=== PATIENT | male | born 1990 | race Caucasian/White ===

== ENCOUNTER 2022-01-22 09:09 | Inpatient (IN) | payer OTHER ==
[~2022-01-22] VITALS: Ht 172.7 cm; Wt 85.7 kg
[2022-01-22 12:23] LABS: BASOPHILS ABSOLUTE AUTO 0.05 K/mm3 (0.00-0.23); BASOPHILS PERCENT AUTO 0 % (0-2); EOSINOPHILS PERCENT AUTO 0 % (0-6); Hematocrit 46.9 % (37.0-53.0); Hemoglobin 16.6 g/dL (13.5-17.5); IMMATURE GRAN PERCENT AUTO 1 % (0-1); LYMPHOCYTES ABSOLUTE AUTO 1.16 K/mm3 (0.84-5.20); LYMPHOCYTES PERCENT AUTO 6 % (21-46); MONOCYTES ABSOLUTE AUTO 1.32 K/mm3 (0.16-1.47); MONOCYTES PERCENT AUTO 7 % (4-13); Mean Corpuscular HGB 30.2 pg (26.0-34.0); Mean Corpuscular HGB Conc 35.4 g/dL (31.5-36.5); Mean Corpuscular Volume 85 fL (80-100); Mean Platelet Volume 10.6 fL (9.1-12.4); NEUTROPHILS ABSOLUTE AUTO 17.59 K/mm3 (1.96-9.15); NEUTROPHILS PERCENT AUTO 87 % (41-73); Platelet Count 312 K/mm3 (150-400); RDW Coefficient Variation 11.9 % (11.7-14.2); RDW Standard Deviation 36.9 fL (35.1-46.3); Red Blood Cell Count 5.49 M/mm3 (4.30-5.90); White Blood Cell Count 20.22 K/mm3 (4.00-11.30)
[2022-01-22 12:39] LABS: Albumin, Blood 4.9 g/dL (3.4-5.0); Albumin/Globulin Ratio 1.3 (0.8-1.8); Bun/Creatinine Ratio 22.9 (12.0-20.0); Calcium, Blood 9.5 mg/dL (8.5-10.1); Creatinine, Blood 1.75 mg/dL (0.60-1.20); Globulin, Blood 3.8 g/dL (2.2-4.0); Potassium, Blood 4.5 mmol/L (3.5-5.5); Total Protein, Blood 8.7 g/dL (6.4-8.2)
[2022-01-22] MEDS ORDERED: LAMO25 PO (13:23)
[2022-01-22] MEDS ORDERED: PROP10 PO (13:24)
[2022-01-22 13:29] LABS: U Amphetamine Screen DETECTED; U Barbituate Screen Not Detected; U Benzodiazapine Screen Not Detected; U Buprenorphine Screen Not Detected; U Cannabinoids Screen Not Detected; U Cocaine Screen Not Detected; U Methadone Screen Not Detected; U Methamphetamine Screen DETECTED; U Opiates Screen Not Detected; U Oxycodone Screen Not Detected; U Phencyclidine Screen Not Detected; U Propoxyphene Screen Not Detected
--- NOTE | 2022-01-22 14:22 | NUR ---
PT TO ROOM 219 FROM ED. PT COVERED IN BLOOD WITH ACTIVELY BLEEDING DRESSING. THIS RN TRIED TO CHANGE DRESSING IN ORDER TO STOP BLEEEDING. PT BECAME VERY AGITATED AND RAN OUT OF THE ROOM. PT LEFT AMA. IV LEFT IN PATIENT.
--- NOTE | 2022-01-22 14:43 | NUR ---
PT BACK IN ROOM AT THIS TIME. EXPRESSED HE DID NOT UNDERSTAND WHAT WAS HAPPENING AND DID NOT WANT TO GO AMA. NURSING MOUNTING MACHINE OPERATOR NOTIFIED AND WILL GO OVER [employer]ERO TOLERANCE POLICY WITH PATIENT. WILL HAVE TO CALL IN CONSULTS AGAIN.
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
--- NOTE | 2022-01-23 05:29 | NUR ---
SEWING MACHINE ATTACHMENT TESTER SUMMARY PT AAOX3 AND HAS BEEN CALM AND COOPERATIVE THROUGH THE NIGHT. PT REPORTS USING METH REGULARLY AND DOES DISPLAY SOME FLIGHT OF IDEAS AND HAS TO BE REMINDED SEVERAL TIMES TO NOT SHUT OFF OR UNHOOK HIS IV FLUIDS. NPO SINCE MIDNIGHT ASIDE FROM PAIN PILL X1 AROUND 0500. PT DOES NOT TAKE PRECAUTIONS WITH HIS L ARM WHICH HAS CAUSED SOME BLEEDING FROM HIS OPEN WOUND ON THE ELBOW. DRESSING CHANGED THIS AM WITH ABD PAD WITH KERLEX AND HARPER WRAP. PT REPORTS SOME NUMBNESS TO HIS HAND BUT STATES THIS IS UNCHANGED SINCE SUSTAINING THE INJURY. ENCOURAGED PT TO BE MORE CAUTIOUS WITH HIS L ARM TO DECREASE DRAINAGE FROM WOUND. PT TO HAVE SURGERY LATER TODAY. VSS, WILL CONTINUE TO MONITOR.
--- NOTE | 2022-01-23 14:06 | NUR ---
PT TO DAY SURGERY AT THIS TIME.
--- NOTE | 2022-01-23 18:02 | NUR ---
01/23/22 1801 Rodri Topete PT ON SCHEDULED ANTIBIOTICS.
--- NOTE | 2022-01-24 05:11 | NUR ---
EAR SPECIALIST SUMMARY PT ARRIVED FROM PACU AT START OF SHIFT, POD 0 FOR L ARM ORIF. BULKY DRESSING WITH HARPER WRAP IN PLACE, NO DRAINAGE NOTED. PT EDUCATED ON BEING CAREFUL WITH L ARM AND TO ELEVATE IT OFTEN POSSIBLE, HOWEVER PT DOES NOT DO WELL WITH THIS. PT ALSO CONTINUES TO UNHOOK HIS IV LINES WITHOUT ASKING FOR ASSISTANCE FROM STAFF. PT HAS BEEN PLEASANT BUT STILL HAS ERRATIC BEHAVIOR. PT HAS BEEN ON HIS PHONE CALLING DIFFERENT PEOPLE THROUGH MOST OF THE NIGHT. AT ONE POINT PT TOOK A SHOWER WITHOUT LETTING STAFF KNOW. L ARM DRESSING APPEARED DRY AND PT STATED HE HELD THAT ARM OUT OF THE SHOWER. PAIN HAS BEEN MANAGED FAIRLY WELL WITH NORCO 1 TAB Q4H, HOWEVER PT DOES REPORT INCREASED PAIN AT TIMES AFTER NOT TAKING PROPER PRECAUTIONS WITH HIS L ARM. VSS, WILL CONTINUE TO MONITOR.
--- NOTE | 2022-01-24 10:07 | NUR ---
0700-RECEIVED REPORT FROM PREVIOUS SHIFT RN. PT AWAKE IN ROOM, SITTING UP IN BED, A/O X 4, PLEASANT, APPEARS FIDGETY, STATES TO MODERATE PAIN, DOES NOT WISH FOR PAIN MEDICATION AT THIS TIME, CALL LIGHT WITHIN REACH, BED IN LOWEST POSITION 0825-PT IN HALLWAY, PACING, PLEASANT/COOPERATIVE, ALLOWS NURSING STAFF TO TAKE VS AND RETURNS TO BED. 0930-FRIEND VISITING, PT REQUESTING INFORMATION IN WHEN HE WILL DISCHARGE 1000-DISCHARGE ORDERS IN
[2022-01-24] MEDS ORDERED: Norco 5-325 Ta1 EACH PO (10:21)
--- NOTE | 2022-01-24 11:15 | NUR ---
provided pt with discharge instructions and printed materials. pt and friend state understanding of instructions. provided with written prescription for analgesia and instrucrtions. peripheral iv removed wnl. pt wishes to walk to awaiting vehicle. friend has carried patient belongings. provided with splint and instructions for wearing, provided with jose wrap, gauze wrap, instructions to leave dressing in place, only change if the current dressing falling off
== END 2022-01-24 10:50 | disposition home or self-care (01) | DRG 512 ==
LOC: ER 09:09 → ERHOLD 12:11 → SURS 12:11
PROVIDERS: Nurse Practitioner Acute Care; Orthopaedic Surgery; ADMIT Internal Medicine
PROC: 0PSL06Z Reposition Left Ulna with Intramedullary Internal Fixation Device, Open Approach (ICD-10-PCS; principal; 2022-01-23 15:00)
DX: S52.022B Displaced fracture of olecranon process without intraarticular extension of left ulna, initial encounter for open fracture type I or II (principal); F17.210 Nicotine dependence, cigarettes, uncomplicated; F15.229 Other stimulant dependence with intoxication, unspecified; F41.9 Anxiety disorder, unspecified; F32.A Depression, unspecified; F12.10 Cannabis abuse, uncomplicated; W22.8XXA Striking against or struck by other objects, initial encounter; Z79.899 Other long term (current) drug therapy
CPT/HCPCS: 73080; 80053; 85025; 90714; A9270; C1713; C1769; J0690; J1100; J1885; J2060; J2250; J2405; J2704; J2795; J3010; J7120